=== PATIENT | male | born 1950 | race Asian ===

== ENCOUNTER 2017-06-16 07:10 | Day surgery (SDC) | payer MEDICARE, OTHER ==
[~2017-06-16] VITALS: Ht 172.7 cm; Wt 73.3 kg
[2017-06-16 07:58] VITALS: Ht 172.7 cm; Wt 73.3 kg
[2017-06-16] MEDS ORDERED: HYDR25TA6 PO (08:11)
[2017-06-16] MEDS ORDERED: ASPI81TA3 PO (08:11)
[2017-06-16] MEDS ORDERED: AMLO-147 PO (08:11)
[2017-06-16] MEDS ORDERED: LOSA100T7 PO (08:11)
[2017-06-16 08:41] VITALS: BP 155/78; PULSE 68; RESP 20
--- NOTE | 2017-06-16 09:27 | OPPN ---
Date/Time of Note Date/Time of Note DATE: 06/16/17 TIME: 09:26 Operative Report Preoperative Diagnosis Screening Postoperative Diagnosis Small sigmoid polyp was removed Diverticulosis of the colon Internal hemorrhoids Operation/Procedure Performed Colonoscopy and biopsy Surgeon see signature line anesthesia assistant None Anesthesia: moderate sedation Estimated blood loss: none Transfusion Required none Specimen Sigmoid polyp biopsy Grafts/Implants none Complications none TERESA GREGORY MD Jun 16, 2017 09:27
[2017-06-16] MEDS ORDERED: FENTAnyl 50 MCG/ML VIAL ONE (09:41)
[2017-06-16] MEDS ORDERED: MIDAZOLAM 1 MG/ML 2 ML INJ ONE (09:41)
--- NOTE | 2017-06-16 15:28 | GILP ---
DATE OF PROCEDURE: NAME OF PROCEDURE: Colonoscopy and biopsy. SURGEON: Teresa Chandler MD PREOPERATIVE DIAGNOSIS: Screening colonoscopy. POSTOPERATIVE DIAGNOSES: 1. Colonoscopy all the way to the cecum. 2. Small sigmoid colon polyp was removed using biopsy forceps. 3. Diverticulosis of the colon. 4. Internal hemorrhoids. INDICATION FOR THE PROCEDURE: Mr. Cecil Smith is a 67-year-old male patient who was scheduled fo r screening colonoscopy. The procedure and possible complications were well explained to the patien t. The patient understood and consented to the procedure. DESCRIPTION OF PROCEDURE: Under the influence of fentanyl and Versed, the colonoscope was carefully introduced in the rectum and under direct vision, it was advanced all the way to the cecum. FINDINGS: The patient had a small sigmoid colon polyp, and it was removed using biopsy forceps. He was noted to have diverticulosis of the colon and internal hemorrhoids. He tolerated the procedure very well, and there was no complication from the procedure. At the end of the procedure, he was awake with stable vital signs, and he was discharged home to the care of hi s family. IMPRESSION: 1. Colonoscopy all the way to the cecum. 2. Small sigmoid colon polyp was removed using biopsy forceps. 3. Diverticulosis of the colon. 4. Internal hemorrhoids. PLAN: 1. High-fiber diet. 2. Next screening colonoscopy in 10 years. Dictated By: TERESA PACHECO/SASHA Conf#: [id number] DID#: [id number]
== END 2017-06-16 13:01 | disposition home or self-care (01) ==
LOC: GIL 07:10
PROVIDERS: ATTEND Internal Medicine Gastroenterology
DX: Z12.11 Encounter for screening for malignant neoplasm of colon (principal); D12.5 Benign neoplasm of sigmoid colon; K57.90 Diverticulosis of intestine, part unspecified, without perforation or abscess without bleeding; K64.8 Other hemorrhoids; I10 Essential (primary) hypertension
CPT/HCPCS: 45380; 88305; J2250; J3010